=== PATIENT | male | born 1995 | race African-American/Black ===

== ENCOUNTER 2017-09-27 09:50 | Emergency (ER) | payer SELFPAY ==
[2017-09-27 10:41] LABS: Bilirubin Negative (Negative); Blood, Urine Small (Negative); Clarity CLEAR (Clear); Glucose, Urine (Dipstick) Negative (Negative); Leukocyte Small (Negative); Nitrite Negative (Negative); Protein, Urine (Dipstick) Trace mg/dL (Neg-Trace); Specific Gravity, Urine 1.025 (1.002-1.036); pH, Urine 7.5 (5.0-9.0)
[2017-09-27 10:44] LABS: Bacteria/HPF None Seen HPF (None Seen); Hyaline Casts/LPF 7-10 HYALINE CAST LPF (0-3 Hyaline); Pathc Cast-AUWi Flag 0.54 (0-2.49); Squamous Epithelial 0-3 HPF (0-3); WBC/HPF 21-50 HPF (0-3)
[2017-09-27] MEDS ORDERED: cefTRIAXone\\ROCEPHIN 250 MG VIAL ONE (12:09)
[2017-09-27] MEDS ORDERED: Lidocaine 1% PF 5 ML VIAL ONE (12:09)
[2017-09-27] MEDS ORDERED: Lidocaine 2% PF 5 ML VIAL ONE (12:09)
[2017-09-27] MEDS ORDERED: Azithromycin 250 MG TAB ONE ×2 (12:09→12:15)
[2017-09-29 01:14] LABS: Chlamydia by PCR DETECTED (NotDetected); GC by PCR Not Detected (NotDetected)
== END 2017-09-27 12:48 | disposition home or self-care (01) ==
LOC: ERS 09:50
DX: N34.2 Other urethritis (principal); F17.210 Nicotine dependence, cigarettes, uncomplicated
CPT/HCPCS: 81003; 81015; 87086; 87491; 87591; 96372; J0696; J2001

== ENCOUNTER 2017-10-12 11:38 | Emergency (ER) | payer SELFPAY | END 2017-10-12 12:49 | disposition home or self-care (01) | LOC: ERS 11:38 | DX: Z20.2 Contact with and (suspected) exposure to infections with a predominantly sexual mode of transmission (principal); F17.210 Nicotine dependence, cigarettes, uncomplicated | CPT/HCPCS: 99283 ==

== ENCOUNTER 2019-06-21 22:06 | Emergency (ER) | payer SELFPAY ==
[2019-06-21] MEDS ORDERED: Fentanyl 100 MCG/2 ML VIAL ONE ×2 (22:12→23:00)
--- NOTE | 2019-06-21 22:39 | RAD ---
Radiograph pelvis one view: HISTORY: 24-year-old male status post acute pelvic trauma FINDINGS: The pelvic ring appears to be intact. No dislocation of the hips. Pelvis is rotated to the left. IMPRESSION: No fracture identified.
--- NOTE | 2019-06-21 22:39 | RAD ---
Radiograph right femur 2 views: HISTORY: 24-year-old male status post acute trauma FINDINGS: No fracture. IMPRESSION: Negative
--- NOTE | 2019-06-21 22:42 | RAD ---
Radiograph left femur 2 views: HISTORY: 24-year-old male status post acute trauma FINDINGS: There is no fracture. There are at least 2 metallic foreign bodies in the soft tissues of the proxima l posterior medial thigh. The larger of the 2 fragments measures approximately 16 x 12 mm. The other fragment is more superficially located measuring approximately 4 mm. IMPRESSION: 1. metallic foreign bodies in the soft tissues of the posterior medial proximal thigh. 2. No fracture of the femur.
[2019-06-21] MEDS ORDERED: CEFAZOLIN 1 GM VIAL ONE (22:51)
[2019-06-21] MEDS ORDERED: Adacel (T-DAP) 0.5 ML SYRINGE ONE (22:51)
== END 2019-06-21 23:33 | disposition home or self-care (01) ==
LOC: ERS 22:06 → EEVIPCON 22:06 → ERS 23:33
DX: S71.102A Unspecified open wound, left thigh, initial encounter (principal); S71.101A Unspecified open wound, right thigh, initial encounter; F17.210 Nicotine dependence, cigarettes, uncomplicated; W34.00XA Accidental discharge from unspecified firearms or gun, initial encounter
CPT/HCPCS: 72170; 90471; 90715; 96360; 96365; 96375; 96376; J0690; J3010

== ENCOUNTER 2020-07-25 17:38 | Emergency (ER) | payer SELFPAY ==
[2020-07-25] MEDS ORDERED: Docusate 100 MG CAP FS SCH (19:15)
== END 2020-07-25 21:55 | disposition home or self-care (01) ==
LOC: ERS 17:38
DX: H61.21 Impacted cerumen, right ear (principal); F17.290 Nicotine dependence, other tobacco product, uncomplicated
CPT/HCPCS: 99282